=== PATIENT | male | born 1945 | race Caucasian/White ===

== ENCOUNTER 2020-08-02 17:24 | Emergency (ER) | payer OTHER, MEDICAID ==
[~2020-08-02] VITALS: Ht 182.9 cm; Wt 63.5 kg
[2020-08-02] MEDS ORDERED: SODIUM BICARBONATE 8.4% INJ 50ML SYRINGE IV ONE (17:25)
[2020-08-02] MEDS ORDERED: EPINEPHrine HCL 1 MG/10 ML SYRG IV ONE (17:25)
[2020-08-02] MEDS ORDERED: MAGNESIUM SULF 50% 40 MEQ/10 ML VL IV ONE (17:25)
[2020-08-02] MEDS ORDERED: ETOMIDATE (2MG/ML) 20ML VIAL IV ONE (17:30)
[2020-08-02] MEDS ORDERED: SUCCINYLCHOLINE CHLORIDE 20 MG/ML 10ML VIAL IV ONE (17:30)
[2020-08-02] MEDS ORDERED: MIDAZOLAM DRIP 50 mg/50mL 50 ML IV ONE (17:31)
[2020-08-02] MEDS ORDERED: fentaNYL Drip 2500mCg/250mlNS 250 ML IV SCH (17:45)
[2020-08-02] MEDS ORDERED: MIDAZOLAM DRIP 50 mg/50mL 50 ML IV SCH (17:45)
[2020-08-02 17:51] VITALS: BP 127/80
[2020-08-02] MEDS ORDERED: NOREPINEPHRINE 8 MG/250ML KIT 250 ML IV SCH ×2 (18:30→18:45)
[2020-08-02] MEDS ORDERED: NOREPINEPHRINE 8 MG/250ML KIT 250 ML IV ONE (18:46)
[2020-08-02] MEDS ORDERED: EPINEPHrine HCL 250 ML IV SCH (19:45)
[2020-08-02] MEDS ORDERED: CEFEPIME 2 GM in SODIUM CHL 0.9% 50 ML IV ONE (19:45)
[2020-08-02] MEDS ORDERED: MAGNESIUM SULFATE 1GM/100ML 100 ML IV ONE (19:45)
[2020-08-02] MEDS ORDERED: VANCOMYCIN 1GM/250ML 250 ML IV ONE (19:45)
[2020-08-02] MEDS ORDERED: ALBUTEROL SULF 2.5 MG/0.5ML(0.5%) NEB SOLN NEB ONE (19:45)
[2020-08-02] MEDS ORDERED: EPINEPHrine HCL 250 ML IV ONE (19:46)
[2020-08-02] MEDS ORDERED: ALBUTEROL SULF 2.5 MG/0.5ML(0.5%) NEB SOLN ONE (19:46)
[2020-08-02 20:38] LABS: Basophils # (auto) 0 10 ^3/uL (0-0.2); Basophils % (auto) 0.2 % (0.0-2.0); Eosinophils # (auto) 0.1 10 ^3/uL (0-0.8); Eosinophils % (auto) 0.4 % (0.0-7.0); Hematocrit 38.2 % (41.0-53.0); Hemoglobin 12.1 g/dL (13.5-17.5); Lymphocytes # (auto) 1.4 10 ^3/uL (0.4-5.4); Lymphocytes % (auto) 9.3 % (10.0-50.0); Mean Corpuscular Hemoglobin 31.6 pg (28.0-32.0); Mean Corpuscular Hgb Conc. 31.7 g/dL (32.0-36.0); Mean Corpuscular Volume 99.9 fL (80.0-100.0); Monocytes # (auto) 0.7 10 ^3/uL (0-1.3); Monocytes % (auto) 4.8 % (0.0-12.0); Neutrophils # (auto) 12.4 10 ^3/uL (1.6-8.6); Neutrophils % (auto) 85.3 % (37.0-80.0); Nucleated Red Blood Cells % 0.1 %; Platelet Count (auto) 247 10^3/uL (140-450); Red Blood Cells 3.82 10^6/uL (4.5-5.90); Red Cell Distribution Width 14.7 % (11.8-14.3); White Blood Cell 14.5 10^3/uL (4.4-10.8)
[2020-08-02 20:44] LABS: CRP High Sensitivity 0.19 mg/dL (< 0.3)
[2020-08-02 20:58] LABS: INR 1.04 (0.9-1.15); Partial Thromboplastin Time 25.8 sec (23.0-31.2)
== END 2020-08-02 20:29 ==
LOC: EDBD 17:24 → ER 17:24
DX: I46.9 Cardiac arrest, cause unspecified (principal); J96.00 Acute respiratory failure, unspecified whether with hypoxia or hypercapnia; J44.9 Chronic obstructive pulmonary disease, unspecified; I10 Essential (primary) hypertension; Z20.828 Contact with and (suspected) exposure to other viral communicable diseases
CPT/HCPCS: 31500; 36415; 36600; 71045; 80048; 82805; 82962; 83880; 84484; 85025; 85379; 85610; 85730; 86141; 87070; 87205; 87426; 92950; 94640; 99291; J0171; J0330; J0692; J2250; J3475; 87077; 87186; 94002